=== PATIENT | female | born 1960 | race Caucasian/White ===

== ENCOUNTER 2021-05-09 06:22 | Observation (INO) | payer OTHER ==
[2021-05-09] MEDS ORDERED: NITROGLYCERIN 2% OINTMENT - 1GM PACKET TD ONE ×2 (07:24→08:13)
[2021-05-09 08:38] LABS: BASO % 0.6 % (0-2.0); EOS % 2.4 % (0-4.5); HEMATOCRIT 40.6 % (32.4-45.2); HEMOGLOBIN 13.8 GM/dL (10.7-15.3); LYMPH % 41.2 % (8-40); MCH 28.7 pg (25.7-33.7); MEAN CELL VOLUME 84.5 fl (80-96); MEAN PLT VOLUME 8.5 fl (7.5-11.1); MONO % 8.4 % (3.8-10.2); NEUT % 47.4 % (42.8-82.8); PLATELET COUNT 207 10^3/uL (134-434); RBC 4.81 M/mm3 (3.60-5.2); WHITE BLOOD COUNT 4.4 K/mm3 (4.0-10.0)
[2021-05-09 09:02] LABS: CHLORIDE 109 mmol/L (98-107); SODIUM 142 mmol/L (136-145)
[2021-05-09 09:04] LABS: GLUCOSE,RANDOM 94 mg/dL (74-106)
[2021-05-09 09:05] LABS: ALBUMIN 3.9 g/dl (3.4-5.0); ANION GAP 7 MMOL/L (8-16); BLOOD UREA NITROGEN 17.8 mg/dL (7-18); CALCIUM 9.4 mg/dL (8.5-10.1); CO2 27 mmol/L (21-32)
[2021-05-09 09:08] LABS: SGOT/AST 17 U/L (15-37); SGPT/ALT 27 U/L (13-61)
[2021-05-09 09:09] LABS: CREATININE 0.7 mg/dL (0.55-1.3)
[2021-05-09 09:10] LABS: BILIRUBIN,TOTAL 0.5 mg/dL (0.2-1); TOT PROT 7.1 g/dl (6.4-8.2)
[2021-05-09 09:11] LABS: ALK PHOS 73 U/L (45-117)
[2021-05-09 09:25] LABS: EPI CELLS 8 /uL (0-25.1); HYALINE CASTS 1 /uL (0-3.1); PH,URINE 7.5 (5.0-8.0); URINE APPEARANCE CLEAR; URINE BACTERIA 7 /uL (0-1359); URINE BILIRUBIN NEGATIVE (NEGATIVE); URINE COLOR YELLOW; URINE GLUCOSE (UA) NEGATIVE (NEGATIVE); URINE KETONE NEGATIVE (NEGATIVE); URINE LEUK ESTERASE 1+ (NEGATIVE); URINE NITRITE NEGATIVE (NEGATIVE); URINE PROTEIN NEGATIVE (NEGATIVE); URINE RBC 13 /uL (0-23.9); URINE UROBILINOGEN 0.2 mg/dL (0.2-1.0); URINE WBC 29 /uL (0-25.8)
[2021-05-09 18:58] VITALS: BMI 34.5
[2021-05-09] MEDS: FAMOTIDINE 20 MG TABLET PO SCH (21:02)
[2021-05-10 02:16] VITALS: TEMP 98.4
[2021-05-10 07:52] LABS: BASO % 0.6 % (0-2.0); EOS % 1.3 % (0-4.5); HEMATOCRIT 39.8 % (32.4-45.2); HEMOGLOBIN 13.3 GM/dL (10.7-15.3); LYMPH % 25.7 % (8-40); MCH 28.6 pg (25.7-33.7); MCHC 33.5 g/dl (32.0-36.0); MEAN CELL VOLUME 85.4 fl (80-96); MEAN PLT VOLUME 8.8 fl (7.5-11.1); MONO % 5.2 % (3.8-10.2); NEUT % 67.2 % (42.8-82.8); PLATELET COUNT 217 10^3/uL (134-434); RBC 4.66 M/mm3 (3.60-5.2); RDW 14.1 % (11.6-15.6); WHITE BLOOD COUNT 6.6 K/mm3 (4.0-10.0)
[2021-05-10 08:13] LABS: CALCIUM 9.5 mg/dL (8.5-10.1)
[2021-05-10 08:14] LABS: MAGNESIUM 2.3 mg/dL (1.8-2.4)
[2021-05-10 08:17] LABS: CREATININE 0.7 mg/dL (0.55-1.3); PHOSPHOROUS 2.9 mg/dL (2.5-4.9)
[2021-05-10 08:19] LABS: TOT PROT 7.2 g/dl (6.4-8.2)
[2021-05-10] MEDS: FAMOTIDINE 20 MG TABLET PO SCH (09:27)
[2021-05-10] MEDS ORDERED: metoPROLOL SUCCINATE 25 MG TAB.SR.24H (FP) PO SCH (10:00)
[2021-05-10] MEDS ORDERED: ASPIRIN COATED 81 MG TABLET.EC PO SCH (10:15)
[2021-05-10 11:49] VITALS: BP 128/88; PULSE 78
== END 2021-05-10 13:37 | disposition home or self-care (01) ==
LOC: JER 06:22 → JERBED 11:22 → J4W 18:21
PROVIDERS: ADMIT Internal Medicine; ATTEND Internal Medicine
DX: R07.2 Precordial pain (principal); R07.9 Chest pain, unspecified; E78.00 Pure hypercholesterolemia, unspecified; E78.5 Hyperlipidemia, unspecified; R00.2 Palpitations; Z78.9 Other specified health status; J45.909 Unspecified asthma, uncomplicated; Z98.84 Bariatric surgery status; E66.8 Other obesity; Z68.34 Body mass index [BMI] 34.0-34.9, adult; Z91.013 Allergy to seafood; Z88.8 Allergy status to other drugs, medicaments and biological substances; Z87.891 Personal history of nicotine dependence
CPT/HCPCS: 36415; 70450-TC; 71045-TC-FY; 80053; 81003; 82550; 83735; 84100; 84484; 85025; 93005; 93010; 99285-25; C9803; G0378; U0003; U0005